=== PATIENT | male | born 1955 ===

== ENCOUNTER 2017-04-05 20:50 | Emergency (ER) | payer OTHER ==
[2017-04-05 21:07] VITALS: BP 135/95; PULSE 97; RESP 18; TEMP 98.5; O2SAT 94
--- NOTE | 2017-04-05 21:37 | ED PDOC ---
Arrival/HPI - General Chief Complaint: Lower Extremity Problem/Injury Time Seen by Provider: 04/05/17 21:33 Historian: Patient - History of Present Illness Narrative History of Present Illness (Text): 04/05/17 21:35 This 61 yo male with pmh Gout, presents to this ED c/o left ankle Gout attack since this morning. Patient admits eating seafood yesterday. Denies trauma, fever, erythema, skin rash, calf pain, leg swelling, toes pain, or dizziness. Time/Duration: Other (see hpi) Quality: Aching Context: Home Past Medical History - Provider Review Nursing Documentation Reviewed: Yes - Travel History If Yes, travel location?: [place] - Cardiac Hx Cardiac Disorders: No - Pulmonary Hx Respiratory Disorders: No - Neurological Hx Neurological Disorder: No - HEENT Hx HEENT Disorder: No - Renal Hx Renal Disorder: No - Endocrine/Metabolic Hx Endocrine Disorders: No - Hematological/Oncological Hx Blood Disorders: No - Integumentary Hx Dermatological Disorder: No - Musculoskeletal/Rheumatological Hx Musculoskeletal Disorders: Yes Hx Gout: Yes - Gastrointestinal Hx Gastrointestinal Disorders: No - Genitourinary/Gynecological Hx Genitourinary Disorders: No - Psychiatric Hx Psychophysiologic Disorder: Yes Hx Anxiety: Yes Hx Substance Use: No - Surgical History Hx Orthopedic Surgery: Yes (left knee) Family/Social History - Physician Review Nursing Documentation Reviewed: Yes Family/Social History: Other (noncontributory) Smoking Status: Never Smoked Hx Alcohol Use: No Hx Substance Use: No Allergies/Home Meds Allergies/Adverse Reactions: Allergies No Known Allergies Allergy (Verified 04/05/17 21:10) Home Medications: Home Meds Medication Instructions Recorded Confirmed Allopurinol [Zyloprim] 300 mg PO BID 04/05/17 04/05/17 Review of Systems - Review of Systems Constitutional: Normal. absent: Fatigue, Weight Change Eyes: Normal ENT: Normal Respiratory: Normal Cardiovascular: Normal Gastrointestinal: Normal Genitourinary Male: Normal Musculoskeletal: Other (left ankle pain and swelling) Skin: Normal Neurological: Normal Endocrine: Normal Hemo/Lymphatic: Normal Psychiatric: Normal Physical Exam Vital Signs Temp Pulse Resp BP Pulse Ox 04/05/17 21:06 98.5 F 97 H 18 135/95 H 94 L Temperature: Afebrile Blood Pressure: Normal Pulse: Regular Respiratory Rate: Normal Appearance: Positive for: Well-Appearing, Non-Toxic, Comfortable Pain Distress: None Mental Status: Positive for: Alert and Oriented X 3 - Systems Exam Head: Present: Atraumatic, Normocephalic Upper Extremity: Present: Normal Inspection, Normal ROM Lower Extremity: Present: NORMAL PULSES, Tenderness, Neurovascularly Intact, Capillary Refill < 2 s. No: Edema, CALF TENDERNESS, Erythema, Deformity, Temperature Abnormalties Neurological: Present: GCS=15, CN II-XII Intact, Speech Normal, Motor Func Grossly Intact, Normal Sensory Function, Normal Cerebellar Funct, Gait Normal ( but with discomfort during ambulation) Skin: Present: Warm, Dry, Normal Color. No: Rashes Psychiatric: Present: Alert, Oriented x 3, Normal Insight, Normal Concentration Medical Decision Making ED Course and Treatment: 04/05/17 22:34 Patient came c/o gout on left ankle. Patient requested Toradol and Steroid "shot". Patient stated that is the only thing that works for his gout. I reviewed the risk of using Decadron with patient which includes AVN, osteoporosis, diabetes, glaucoma, renal failure, liver failure, or worsen of symptoms. He understood the risk, but he still insisted to have theses medication. Re-evaluation Time: 22:36 Reassessment Condition: Re-examined, Improved - Medication Orders Current Medication Orders: Discontinued Medications Colchicine (Colocrys) 1.2 mg PO STAT STA Stop: 04/05/17 21:35 Last Admin: 04/05/17 21:58 Dose: 1.2 mg Dexamethasone (Decadron Inj) 10 mg IM STAT STA Stop: 04/05/17 21:35 Last Admin: 04/05/17 21:57 Dose: 10 mg IM Administration Charges Document 04/05/17 21:57 SS (Rec: 04/05/17 21:58 [id number] Injection Site MAR Injection Site Right Deltoid Charges for Administration # of IM Administrations 1 Ketorolac Tromethamine (Toradol) 30 mg IM STAT STA Stop: 04/05/17 21:34 Last Admin: 04/05/17 21:57 Dose: 30 mg MAR Pain Assessment Document 04/05/17 21:57 SS (Rec: 04/05/17 21:57 [id number] Pain Reassessment Is this a pain reassessment? No Sleep Is patient sleeping during reassessment? No Presence of Pain Presence of Pain Yes Pain Scale Used Pain Scale Used Numeric Location Left, Right or Bilateral Left Pain Location Body Site Foot Description Intensity of Pain at present 9 IM Administration Charges Document 04/05/17 21:57 SS (Rec: 04/05/17 21:57 SS [id number]) Charges for Administration # of IM Administrations 1 Disposition/Present on Arrival - Present on Arrival Any Indicators Present on Arrival: No History of DVT/PE: No History of Uncontrolled Diabetes: No Urinary Catheter: No History of Decub. Ulcer: No History Surgical Site Infection Following: None - Disposition Have Diagnosis and Disposition been Completed?: Yes Diagnosis: Gout attack Disposition: HOME/ ROUTINE Disposition Time: 22:36 Patient Plan: Discharge Patient Problems: Current Active Problems Problem Status Onset Gout attack Acute Condition: GOOD Discharge Instructions (ExitCare): Gout (ED) Additional Instructions: Call private doctor for follow up visit in 1-2 days. Take medication for pain as needed with food. continue with home medication for gout. return to emergency if symptoms Prescriptions: Indomethacin [Indocin] 50 mg PO TID PRN #20 cap PRN Reason: Pain, Severe (8-10) Forms: [employer] ([place])
== END 2017-04-05 23:19 | disposition home or self-care (01) ==
LOC: ED 20:50
DX: M10.9 Gout, unspecified (principal)
CPT/HCPCS: 96372; 99283; J1100; J1885